=== PATIENT | female | born 1965 ===

== ENCOUNTER → 2021-11-08 17:32 | Outpatient (CLI) | payer OTHER, SELFPAY ==
--- NOTE | ~2021-11-08 | XR_ITS ---
XR lumbar spine min 4V 11/08/2021 17:53 Indication: Sciatica Procedure: 5 views lumbar spine Comparison: No prior studies for comparison. Findings: There is disc narrowing at all lumbar levels. There is facet hypertrophy at L4-5 and L5-S1. Vertebral body heights are maintained. No evidence for spondylolisthesis. No acute fracture or traum atic malalignment. Sacral foramen are symmetric. There are pelvic phleboliths. Pedicles are intact. Impression: 1: Mild lumbar spondylosis. Reviewed, dictated and finalized at location A. Impression: 1: Mild lumbar spondylosis.
== END ==
PROVIDERS: PCP Family Medicine; Visit Provider Family Medicine
DX: M54.42 Lumbago with sciatica, left side (principal); M47.816 Spondylosis without myelopathy or radiculopathy, lumbar region
CPT/HCPCS: 72110